=== PATIENT | female | born 1960 | race Caucasian/White ===

== ENCOUNTER → 2016-06-24 | Outpatient (CLI) | payer OTHER | END | disposition home or self-care (01) | LOC: LAB.O 11:20 | DX: B18.2 Chronic viral hepatitis C (principal) ==

== ENCOUNTER → 2016-08-24 | Outpatient (CLI) | payer OTHER | END | disposition home or self-care (01) | LOC: LAB.O 15:53 | DX: B18.2 Chronic viral hepatitis C (principal) ==

== ENCOUNTER → 2016-09-07 | Outpatient (CLI) | payer OTHER | END | disposition home or self-care (01) | LOC: LAB 16:23 | DX: B18.2 Chronic viral hepatitis C (principal) ==

== ENCOUNTER → 2016-10-05 | Outpatient (CLI) | payer OTHER | END | disposition home or self-care (01) | LOC: LAB 15:59 | DX: B18.2 Chronic viral hepatitis C (principal) ==

== ENCOUNTER → 2016-11-02 | Outpatient (CLI) | payer OTHER | END | disposition home or self-care (01) | LOC: LAB.O 09:21 | DX: B18.2 Chronic viral hepatitis C (principal) ==

== ENCOUNTER → 2017-02-09 | Outpatient (CLI) | payer OTHER | END | disposition home or self-care (01) | LOC: LAB.O 16:04 | DX: B18.2 Chronic viral hepatitis C (principal) ==

== ENCOUNTER → 2019-08-28 | Outpatient (CLI) | payer OTHER | LOC: GMAL 11:46 | PROVIDERS: ATTEND Family Medicine | DX: Z00.01 Encounter for general adult medical examination with abnormal findings (principal) ==

== ENCOUNTER 2020-02-14 05:32 | Day surgery (SDC) | payer OTHER ==
[2020-02-14] MEDS ORDERED: LACTATED RINGERS 1,000 ML ONE (06:05)
[2020-02-14] MEDS ORDERED: PROPOFOL 200 MG/20 ML VIAL IV ONE (07:00)
[2020-02-14 08:48] VITALS: O2SAT 99
[2020-02-14 09:40] VITALS: BP 144/97; TEMP 97.3
--- NOTE | 2020-02-14 09:51 | OP ---
DATE OF PROCEDURE: 02/14/20 PREOPERATIVE DIAGNOSIS: 1. Colorectal cancer screen, average risk. POSTOPERATIVE DIAGNOSIS: 1. Small diverticula in sigmoid. 2. Internal hemorrhoids. 3. Otherwise, normal colonoscopy. PROCEDURE: 1. Colonoscopy. SURGEON: Jeremy Almazan MD. ANESTHESIA: MAC. PROCEDURE: Informed consent was obtained prior to sedation. The preprocedure cardiopulmonary assessment was satisfactory. The patient was placed in the left lateral decubitus position and was sedated. The tip of the Olympus colonoscope was inserted in the rectum and guided through the entire colon under direct visualization. The cecum was identified. The ileocecal valve and appendiceal orifice appeared unremarkable. Slow withdrawal was started at this time. Colonoscopy prep was good. Retroflexion view of the cecum and right colon was done and appeared normal. Slow withdrawal showed evidence of mild diverticulosis in the sigmoid colon. Continued slow withdrawal showed no further abnormalities. Retroflexion view of the anorectal area showed evidence of internal hemorrhoids, grade 1 or 2. The scope was then withdrawn from the patient and the procedure was terminated. COMPLICATIONS: None. RECOMMENDATION: 1. FIT in 3 years or yearly until next recommended colonoscopy. 2. Repeat colonoscopy in 10 years. 3. Regular diet. 4. Continue home medications. 5. Followup in GI clinic as needed. 6. Watch for complications like bleeding, fever, abdominal pain or other and return to the Emergency Room immediately. #[id number] MTDD
== END 2020-02-14 09:30 | disposition home or self-care (01) ==
LOC: AMB 05:32
DX: Z12.11 Encounter for screening for malignant neoplasm of colon (principal); K57.30 Diverticulosis of large intestine without perforation or abscess without bleeding; K64.8 Other hemorrhoids; I10 Essential (primary) hypertension; Z79.899 Other long term (current) drug therapy
CPT/HCPCS: 00812; 45378; J7120